=== PATIENT | female | born 1945 | race African-American/Black ===

== ENCOUNTER → 2017-09-15 | Outpatient (CLI) | payer OTHER | END | disposition home or self-care (01) | LOC: KCIC 12:47 | DX: M47.894 Other spondylosis, thoracic region (principal); R06.09 Other forms of dyspnea; R06.2 Wheezing; R05 Cough | CPT/HCPCS: 71046 ==

== ENCOUNTER → 2017-09-21 | Outpatient (CLI) | payer OTHER | END | disposition home or self-care (01) | LOC: KCIC MAMMO 10:11 | DX: Z12.31 Encounter for screening mammogram for malignant neoplasm of breast (principal) | CPT/HCPCS: 77063; 77067 ==

== ENCOUNTER → 2018-09-23 | Outpatient (CLI) | payer OTHER ==
[2015-09-27 10:54] VITALS: BP 145/80
--- NOTE | 2018-09-23 13:25 | KCIC ---
Bilateral digital screening mammograms: Reason for examination: Routine screening. Comparison is made to previous studies dated 09/21/2017 and 09/02/2016. Interpretation was made with the benefit of CAD. The skin and nipples show no abnormalities. No abnormal lymph nodes are seen. The breast parenchyma is predominantly fatty. (Breast density: Category A.) There are no dominant masses, suspicious calcifications or architectural distortions. A few benign calcifications are again seen. Impression: No evidence of malignancy. Recommend routine screening. BI-RADS Category 2: Benign. "Our facility is accredited by the [employer] Mammography Program." This patient's information has been entered into a reminder system for the patient to be notified with the results of her examination and a target date for the next mammogram. Electronically signed by: Harleen Walton MD (09/23/2018 1:22 PM) [id number]
== END | disposition home or self-care (01) ==
LOC: KCIC MAMMO 10:07
PROVIDERS: ATTEND Family Medicine
DX: Z12.31 Encounter for screening mammogram for malignant neoplasm of breast (principal); R92.8 Other abnormal and inconclusive findings on diagnostic imaging of breast
CPT/HCPCS: 77067

== ENCOUNTER → 2019-09-27 | Outpatient (CLI) | payer BC, MEDICARE ==
[2015-09-27 10:54] VITALS: BP 145/80
--- NOTE | 2019-09-27 10:05 | KCIC ---
EXAM: Bilateral screening mammogram. HISTORY: 74-year-old female presents for screening mammography. TECHNIQUE: Full-field digital craniocaudal and mediolateral oblique views of both breasts are obtained for evaluation. Computer aided detection with [employer] software version 9.3 was applied. COMPARISON: 09/23/2018 and 09/21/2017 BREAST PARENCHYMAL DENSITY: Level B - Scattered fibroglandular densities. FINDINGS: There is no new suspicious mass, microcalcification or region of architectural distortion. IMPRESSION: BI-RADS Category 2: Benign finding(s). RECOMMENDATION: Annual mammography is recommended. If your mammogram demonstrates that you have dense breast tissue, which could hide abnormalities, and if you have other risk factors for breast cancer that have been identified, you might benefit from supplemental screening tests that may be suggested by your ordering physician. Dense breast tissue, in and of itself, is a relatively common condition. This information is not provided to cause undue concern, but rather to raise your awareness and to promote discussion with your physician regarding the presence of other risk factors, in addition to dense breast tissue. A report of your mammography results will be sent to you and your physician. You should contact your physician if you have any questions or concerns regarding this report. Mammography is a sensitive method for finding small breast cancers, but it does not detect them all and is not a substitute for careful clinical examination. A negative mammogram does not negate a clinically suspicious finding and should not result in delay in biopsying a clinically suspicious abnormality. PQRS compliance statement - Patient information was entered into a reminder system with a target due date for the next mammogram. "Our facility is accredited by the [employer] Mammography Program." Electronically signed by: Rajni Erickson MD (09/27/2019 10:02 AM) [facility]
== END | disposition home or self-care (01) ==
LOC: KCIC MAMMO 07:59
PROVIDERS: ATTEND Family Medicine
DX: Z12.31 Encounter for screening mammogram for malignant neoplasm of breast (principal)
CPT/HCPCS: 77067

== ENCOUNTER → 2020-02-10 | Outpatient (CLI) | payer BC ==
[2015-09-27 10:54] VITALS: BP 145/80
--- NOTE | 2020-02-10 15:31 | KCIC ---
EXAM: CHEST PA LATERAL INDICATION: Reason: SOA WITH EXERTION FOR A FEW MONTHS, NO OTHER SYMPTOMS / Spl. Instructions: / History: . TECHNIQUE: PA and lateral views of the chest COMPARISON: 05/21/2009 FINDINGS: Heart is moderately enlarged, slightly larger than before. The great vessels appear unremarkable. There is no hilar or mediastinal mass. Lungs show increased interstitial markings bilaterally, more conspicuous on the right. There is no pleural effusion or pneumothorax. There are no significant osseous abnormalities. IMPRESSION: Mild cardiomegaly and increased interstitial markings, suggesting pulmonary vascular congestion. Electronically signed by: Chemo Tee MD (02/10/2020 3:28 PM) [id number]
== END | disposition home or self-care (01) ==
LOC: KCIC 12:40
PROVIDERS: ATTEND Family Medicine
DX: I51.7 Cardiomegaly (principal); R06.00 Dyspnea, unspecified
CPT/HCPCS: 71046

== ENCOUNTER → 2021-11-12 | Outpatient (CLI) | payer BC ==
[2015-09-27 10:54] VITALS: BP 145/80
--- NOTE | 2021-11-12 12:58 | KCIC ---
Bilateral digital screening 2-D and 3-D (digital breast tomosynthesis) mammogram: Reason for examination: Routine screening. Comparison: Mammograms from 09/21/2017, 09/27/2019, and 11/07/2020. FINDINGS: Breast density: Category B. There are scattered areas of fibroglandular density. No suspicious breast mass, malignant appearing calcifications, or architectural distortion is seen. T here are stable grouped calcifications in the 1:00 position of the left breast at middle depth. Uncha nged tiny oval circumscribed masses. IMPRESSION: No evidence of malignancy. Assessment: BI-RADS 2. Benign findings. Recommendation: Routine screening mammograms. The patient will receive a letter with the results in the mail. Patient information will be entered i nto the mammography reminder system with a target recall date for the next mammogram. A reminder lenka er will be generated. Electronically signed by: Trice Burt MD (11/12/2021 12:55 PM) [id number]
== END ==
LOC: KCIC MAMMO 09:39
PROVIDERS: ATTEND Family Medicine
DX: Z12.31 Encounter for screening mammogram for malignant neoplasm of breast (principal)
CPT/HCPCS: 77063; 77067